=== PATIENT | male | born 1985 ===

== ENCOUNTER 2016-06-02 11:21 | Observation (INO) | payer OTHER ==
[2016-06-02] MEDS ORDERED: NS 1,000 ML IV ONE (11:27)
[2016-06-02] MEDS ORDERED: MIDAZOLAM 2 MG/2 ML VIAL IVP ONE (11:27)
--- NOTE | 2016-06-02 11:41 | CPEKG ---
Heart Rate: 46 RR Interval: 1304 P-R Interval: 156 QRSD Interval: 94 QT Interval: 460 QTC Interval: 403 P Jay: 25 QRS Jay: 85 T Wave Jay: 41 EKG Severity - OTHERWISE NORMAL ECG - EKG Impression: SINUS BRADYCARDIA EKG Impression: ST ELEV, PROBABLE NORMAL EARLY REPOL PATTERN Electronically Signed By: Alirio Razo 03-Jun-2016 09:28:48
[2016-06-02] MEDS ORDERED: HEPARIN 10,000 UNIT/10 ML MDV ONE (11:57)
[2016-06-02] MEDS ORDERED: BUPIVACAINE 0.5% 30 ML SDV ONE (11:57)
[2016-06-02] MEDS ORDERED: LIDOCAINE 1% 30 ML SDV ONE (11:57)
[2016-06-02] MEDS ORDERED: ISOPROTERENOL HCL 0.2 MG/ML 5ML AMP ONE (11:57)
[2016-06-02 11:58] LABS: % IMMATURE GRANULYOCYTES 0.2 % (0.0-1.1); ABSOLUTE IMMATURE GRANULOCYTES 0.01 10^3/uL (0.00-0.10); ADD DIFF? NO; ADD MORPH? NO; ADD SCAN? NO; ATYPICAL LYMPHOCYTE FLAG 10 (0-99); FRAGMENT RBC FLAG 0 (0-99); HEMOGLOBIN 16.2 g/dL (13.7-17.5); LEFT SHIFT FLG 0 (0-99); LIPEMIA HEMOLYSIS FLAG 90 (0-99); MEAN CELL HEMOGLOBIN 31.5 pg (27.9-34.1); MEAN CELL HEMOGLOBIN CONCENTR. 35.2 g/dL (32.4-36.7); MEAN CELL VOLUME 89.5 fL (81.5-99.8); MEAN PLATELET VOLUME 10.4 fL (8.7-11.7); PLATELET CLUMPS FLAG 10 (0-99); PLATELET COUNT 199 10^3/uL (150-400); RED BLOOD CELL COUNT 5.14 10^6/uL (4.40-6.38)
[2016-06-02] MEDS ORDERED: MIDAZOLAM 2 MG/2 ML VIAL ONE (12:00)
[2016-06-02 12:05] LABS: INR 0.98 (0.83-1.16); PROTIME(PATIENT) 12.9 SEC (12.0-15.0)
[2016-06-02] MEDS ORDERED: PROPOFOL 200 MG/20 ML VIAL ONE (12:05)
[2016-06-02] MEDS ORDERED: DEXAMETHASONE 4 MG/ML VIAL ONE (12:05)
[2016-06-02] MEDS ORDERED: fentaNYL 100 MCG/2 ML INJ ONE (12:05)
[2016-06-02] MEDS ORDERED: ONDANSETRON 4 MG/2 ML VIAL ONE (12:05)
[2016-06-02 12:06] LABS: APTT 27.8 SEC (23.0-38.0)
[2016-06-02 12:11] LABS: ANION GAP 10 mEq/L (8-16); CALCIUM 9.6 mg/dL (8.5-10.4); CARBON DIOXIDE 25 mEq/l (22-31); CHLORIDE 106 mEq/L (97-110); CREATININE 0.9 mg/dL (0.7-1.3); GLOMERULAR FILTRATION RATE > 60; GLUCOSE 102 mg/dL (70-100); MAGNESIUM 1.6 mg/dL (1.6-2.3); POTASSIUM 4.4 mEq/L (3.5-5.2); SODIUM 141 mEq/L (134-144)
[2016-06-02] MEDS ORDERED: PHENYLEPHRINE HCL 100 MCG/ML SYR ONE (13:10)
[2016-06-02] MEDS ORDERED: ROCURONIUM 50 MG/5 ML VIAL ONE ×3 (14:01)
[2016-06-02] MEDS ORDERED: SUGAMMADEX SODIUM 200 MG/2 ML VIAL IVP ONE (14:28)
[2016-06-02] MEDS ORDERED: ONDANSETRON 4 MG/2 ML VIAL IVP PRN (14:47)
[2016-06-02] MEDS ORDERED: ACETAMINOPHEN 325 MG TAB PO PRN (14:47)
--- NOTE | 2016-06-02 14:47 | EPPROC ---
Electrophysiology Procedure Note: ELECTROPHYSIOLOGIC STUDY AND CATHETER MEDIATED ABLATION OF SLOW/FAST AV SATNAM REENTRY TACHYCARDIA PROCEDURES PERFORMED: 81627-39 EP evaluation with RA/RV/LA pace/record, with arrhythmia induction 76307-76 EP evaluation with RA/RV pace record, insert/reposition catheter, with arrhythmia induction 86212 Intracardiac catheter ablation, SVT arrhythmogenic focus 08443 3D mapping Fluoroscopy INDICATION: PROCEDURE: Catheters & Anesthesia: The patient arrived in the Electrophysiology Laboratory in the fasting state. The right clavicular region, right groin, and left groin area were prepped and draped in the usual sterile manner. Anesthesiologist Dr. Jayesh Sanders administered general anesthesia. Appropriate non-invasive blood pressure, pulse oximetry and end-tidal CO2 monitoring was established. All catheters were placed percutaneously using the modified Seldinger technique , and advanced into position under fluoroscopic guidance. One #6 [place] hexapolar non-deflectable electrode catheter was inserted into the right atrial appendage via the left femoral vein (2mm spacing; except the proximal ring which was 25cm from the tip used for unipolar recordings). One #7 [place] deflectable octapolar electrode catheter was advanced to the His-bundle position via the left femoral vein (2mm spacing). One #7 [place] deflectable quadrapolar catheter was advanced to the anteroseptal right ventricle via the right femoral vein. One #7 [place] deflectable catheter with 10 pairs of electrodes was placed via the right femoral vein into the coronary sinus. Heparin was given to keep ACT > 200 s. Programmed stimulation was performed from the right atrium, right ventricle and coronary sinus (left atrium). Parahisian pacing demonstrated constant H-A interval with changing V-A intervals and stimulus-A intervals during capture and loss of capture of proximal RBB proving retrograde conduction over AV node. AVNRT was induced easily during infusion of isoproterenol 4 mcg/min. Ventricular extrastimuli delivered during tachycardia without altering antegrade His bundle activation did not advance next atrial potential, indicating that the tachycardia was not utilizing an accessory pathway for retrograde conduction. VA interval was 0 ms. Post entrainment of the tachycardia from the ventricle, there was VAHV response. Mapping of the right atrium and coronary sinus during AVNRT identified earliest atrial activation above the tendon of Elsy at a level slightly posterior to the level of the His bundle, consistent with retrograde conduction over the fast AV satnam pathway. A #8 [place] deflectable quadrapolar electrode catheter (2mm-5mm-2mm spacing) with 4 mm tip electrode and sensor for the 3D mapping Carto system was advanced to the right atrium. 3 D mapping of the inter-atrial septum and coronary sinus was performed and location of the AV node was marked. A SL2 sheath was used. RF applications were delivered to the region between the tricuspid annulus and the coronary sinus ostium, at the level of the upper edge of the coronary sinus ostium. Radiofrequency applications were also delivered along the roof of the proximal coronary sinus. Junctional rhythm occurred during all of the RF applications. Programmed stimulation was continued post ablation at baseline and during graded doses of isoproterenol upto 4mcg/min. Sustained AVNRT was not inducible. There were single echo beats. The catheters were removed. The long sheath was changed to a short 9 Fr sheath. The patient was transferred to the cardiovascular holding area in stable condition. Vascular access sheaths were removed in the holding area. There were no apparent complications. Results: A. Spontaneous Intervals: Pre ablation SCL 1380 ms AH 75 ms HV 45 ms Post ablation SCL 690 ms AH 75 ms HV 40 ms B. Antegrade AV satnam function (decremental pacing) Pre ablation FPERP 990 ms SPERP 510 ms WBB CL 500 ms (AH jump from 190 ms to 270 ms at FPERP) Post ablation FPERP 460 ms ms WBB CL 450 ms C. Retrograde AV satnam function (decremental pacing) Pre ablation FPERP 310 ms WBB CL 300 ms D. Arrhythmias: Sustained slow/fast AVNRT Cycle length 340 ms, AH interval 300 ms, ESP[place] interval 40 ms VA interval 0 ms CONCLUSIONS 1. AV satnam reentrant tachycardia using the slow AV satnam pathway for antegrade conduction and the fast AV satnam pathway for retrograde conduction. ( Slow/fast AVNRT). 2. Successful ablation of the slow AV satnam pathway with elimination of 1:1 antegrade conduction over the slow AV satnam pathway, all retrograde conduction over the slow AV satnam pathway and the inducibility of AVNRT. 3. No complications. Patient Problems: Problems Problem Status Onset Supraventricular tachycardia Acute
[2016-06-02] MEDS ORDERED: ATROPINE SULFATE 1 MG/10 ML SYR ONE (14:52)
--- NOTE | 2016-06-02 15:15 | CPEKG ---
Heart Rate: 56 RR Interval: 1071 P-R Interval: 196 QRSD Interval: 94 QT Interval: 436 QTC Interval: 421 P [place]: 65 QRS [place]: 81 T Wave [place]: 38 EKG Severity - NORMAL ECG - EKG Impression: SINUS RHYTHM EKG Impression: ST ELEV, PROBABLE NORMAL EARLY REPOL PATTERN Electronically Signed By: Alirio Razo 03-Jun-2016 09:28:54
[2016-06-02 15:39] LABS: ANION GAP 11 mEq/L (8-16); CALCIUM 9.1 mg/dL (8.5-10.4); CARBON DIOXIDE 21 mEq/l (22-31); CHLORIDE 107 mEq/L (97-110); CREATININE 0.8 mg/dL (0.7-1.3); GLOMERULAR FILTRATION RATE > 60; GLUCOSE 125 mg/dL (70-100); MAGNESIUM 1.4 mg/dL (1.6-2.3); POTASSIUM 4.4 mEq/L (3.5-5.2); SODIUM 139 mEq/L (134-144)
[2016-06-02] MEDS ORDERED: MAGNESIUM SULF 1 GM/DEXTROSE 100 ML BAG IV ONE (16:27)
[2016-06-02] MEDS ORDERED: MAGNESIUM SULF 1 GM/DEXTROSE 100 ML IV ONE (16:30)
[2016-06-03 04:32] LABS: % IMMATURE GRANULYOCYTES 0.2 % (0.0-1.1); ABSOLUTE IMMATURE GRANULOCYTES 0.02 10^3/uL (0.00-0.10); ADD DIFF? NO; ADD MORPH? NO; ADD SCAN? NO; ATYPICAL LYMPHOCYTE FLAG 10 (0-99); FRAGMENT RBC FLAG 0 (0-99); HEMATOCRIT 41.3 % (40.0-51.0); HEMOGLOBIN 14.4 g/dL (13.7-17.5); LEFT SHIFT FLG 0 (0-99); LIPEMIA HEMOLYSIS FLAG 90 (0-99); MEAN CELL HEMOGLOBIN 31.4 pg (27.9-34.1); MEAN CELL HEMOGLOBIN CONCENTR. 34.9 g/dL (32.4-36.7); MEAN CELL VOLUME 90.2 fL (81.5-99.8); MEAN PLATELET VOLUME 10.5 fL (8.7-11.7); PLATELET CLUMPS FLAG 0 (0-99); PLATELET COUNT 176 10^3/uL (150-400); RED BLOOD CELL COUNT 4.58 10^6/uL (4.40-6.38); RED CELL DISTRIBUTION WIDTH 11.8 % (11.5-15.2)
[2016-06-03 04:41] LABS: INR 1.06 (0.83-1.16); PROTIME(PATIENT) 13.7 SEC (12.0-15.0)
[2016-06-03 05:05] LABS: ANION GAP 9 mEq/L (8-16); CALCIUM 9.4 mg/dL (8.5-10.4); CARBON DIOXIDE 24 mEq/l (22-31); CHLORIDE 106 mEq/L (97-110); CREATININE 0.8 mg/dL (0.7-1.3); GLOMERULAR FILTRATION RATE > 60; GLUCOSE 102 mg/dL (70-100); POTASSIUM 4.1 mEq/L (3.5-5.2); SODIUM 139 mEq/L (134-144)
[2016-06-03 05:17] LABS: TROPONIN I 0.323 ng/mL (0-0.034)
[2016-06-03 07:30] VITALS: BP 105/68; PULSE 51; RESP 20; TEMP 98.2; O2SAT 94
[2016-06-03] MEDS ORDERED: ATROPINE SULFATE 1 MG/10 ML SYR ONE (07:35)
[2016-06-03] MEDS ORDERED: ASPIRIN 81 MG CHEWABLE TAB PO SCH (09:00)
--- NOTE | 2016-06-03 09:32 | CPEKG ---
Heart Rate: 50 RR Interval: 1200 P-R Interval: 168 QRSD Interval: 96 QT Interval: 428 QTC Interval: 391 P [place]: 27 QRS [place]: 86 T Wave [place]: 55 EKG Severity - NORMAL ECG - EKG Impression: SINUS RHYTHM EKG Impression: ST ELEV, PROBABLE NORMAL EARLY REPOL PATTERN Electronically Signed By: Alirio Razo 03-Jun-2016 16:46:46
--- NOTE | 2016-06-03 11:11 | ECHO ---
[id number] + + [address] : : [place] [address] : : [phone] + + Adult Echocardiographic Report + -----+ :Name: ALF PUENTE LStudy Date: 06/03/2016 08:16 AM : : Hospital Admission Number: [id number] Location : 210: :: 1985 Gender: Male Height: 73 in : :Age: 31 yrs Race: PTNP Weight: 165 lb : :Reason For Study: Eval LV Fx : : BSA: 2.0 meters2 : :History: Post EP : + -----+ MMode/2D Measurements \T\ Calculations IVSd: 0.78 cm LVIDd: 5.1 cm FS: 38.2 % Ao root diam: 3.6 cm LVPWd: 0.94 cm LVIDs: 3.1 cm EDV(Teich): 121.2 ml ACS: 2.1 cm ESV(Teich): 38.6 ml EF(Teich): 68.2 % Normal Measurement Values: + + :LVIDd (3.5-5.7cm) IVSd (0.6-1.1cm) LVPWd (0.6-1.1cm) Aortic Root (2.0-3.7cm)Left Atrium (1.5-4.0cm): :LV Vol(d) (76-115ml) LV Vol(s) (29-48ml) Ejec Fraction (50-65%)PV Eric (0.6- 1.2m/s) TV Eric (0.4-1.0m/s) : :MV E Eric (0.8-1.0m/s)MV A Eric (0.3-1.0m/s)LVOT Eric (0.7-1.2m/s) Asc Ao Eric ( 0.9-1.8m/s) : + + Doppler Measurements \T\ Calculations MV E max eric: Ao V2 max: LV V1 max: PA V2 max: 60.2 cm/sec 116.4 cm/sec 91.8 cm/sec 79.5 cm/sec MV A max eric: Ao max P.4 mmHg LV V1 max PG: PA max P.9 cm/sec 3.4 mmHg 2.5 mmHg MV E/A: 1.3 Left Ventricle The left ventricle is normal in size and function. There is normal left ventricular wall thickness. The left ventricular ejection fraction is normal. Ejection Fraction = 68%. The left ventricular wall motion is normal. Right Ventricle The right ventricle is normal in size and function. Atria The left atrial size is normal. Right atrial size is normal. Mitral Valve The mitral valve is normal. There is no evidence of mitral valve prolapse. There is no mitral valve stenosis. There is trace mitral regurgitation. Tricuspid Valve Normal tricuspid valve. There is trace tricuspid regurgitation. Right ventricular systolic pressure is normal. Aortic Valve The aortic valve is normal in structure and function. The aortic valve is trileaflet. There is no aortic stenosis. There is no aortic insufficiency. Pulmonic Valve The pulmonic valve is normal in structure and function. There is no pulmonic valvular regurgitation. Great Vessels The aortic root is normal size. Pericardium/Pleural There is no pericardial effusion. Conclusion A complete two-dimensional transthoracic echocardiogram was performed (2D, M-mode, Doppler and color flow Doppler). The left ventricle is normal in size and function. The left ventricular ejection fraction is normal. Ejection Fraction = 68%. The left ventricular wall motion is normal. The right ventricle is normal in size and function. There is trace mitral regurgitation. There is trace tricuspid regurgitation. Right ventricular systolic pressure is normal. The aortic valve is normal in structure and function. The aortic valve is trileaflet. There is no pericardial effusion. Final Reading Physician: Aditya Fernandes MD electronically signed on 06/03/2016 11:10 AM Ordering Physician: Aditya Fernandes Performed By: Hermes Matos, CS
--- NOTE | 2016-06-03 11:26 | GDS ---
[f rep st] DISCHARGE SUMMARY DISCHARGE DIAGNOSES: 1. 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 2. Vasovagal syncope with documented pauses of up to 5 seconds. HOSPITAL COURSE: For detailed H and P, please see prior dictation. 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 He has had 6 episodes of tachycardia over the past 2 years, all of which occurred with exertion. He did have a documented event at [facility] after a 2-hour episode of SVT. He ultimately had a consultation with Dr. Aditya Fernandes to discuss medical therapy versus possible ablation. He has a resting heart rate in the 40s and therefore it was determined that he would not tolerate the calcium channel aakash or beta aakash. Ultimately, the decision was made to proceed with an EP study and ablation. This was performed on 2016 and he was identified to have an AV tono reentrant tachycardia, which was ablated. That evening he stood and walked a few feet to the bathroom and became significantly lightheaded. He had a true syncopal event but was caught by his nurse. He came to but then had multiple more events over the next few minutes of loss of consciousness. He was monitored on telemetry and developed junctional rhythm followed by a pause of 3.8 seconds and then his heart rate began to increase. This is typical of vasovagal syncope. His pressure that was obtained was 116/78. This morning, he denies any further dizzy spells. He has ambulated in the halls without any dizziness, chest pain or shortness of breath. His troponin peaked at 0.323. The preliminary results of an echocardiogram revealed preserved LV function without any evidence of pericardial effusion. His EKG the day of discharge showed sinus bradycardia at a rate of 50 with repolarization abnormality. PHYSICAL EXAMINATION: GENERAL: Patient appears in no acute distress. VITALS: Blood pressure 105/68, heart rate 51, oxygen saturation of 94% on room air, afebrile. LUNGS: Clear to auscultation. No wheezes, rhonchi or crackles auscultated. CARDIAC: Regular rate and rhythm without any murmurs, rubs or gallops appreciated. EXTREMITIES: Bilateral groins where access was obtained for the EP study and ablation are clean, intact, without any evidence of infection or hematoma. DISCHARGE MEDICATIONS: Aspirin 81 mg daily x6 weeks. PLAN: The patient is currently stable and ready for discharge home. He will follow up with Dr. Aditya Fernandes in 1 month as scheduled. He has been given groin precautions. I have also encouraged him to increase his salt and fluid intake to prevent further episodes of vasovagal syncope. He has not exercised for 10 days. Greater than 30 minutes was spent coordinating the patient's care today. Addendum S Dena - reviewed findings with patient. Findings c.w. vasovagal syncope with ambulation. Adv to increase fluid and salt intake. No intervention necessary /[id number]/MODL MTDD
== END 2016-06-03 11:21 | disposition home or self-care (01) ==
LOC: FCATH 11:21 → F2W 14:47
PROVIDERS: ADMIT Internal Medicine Cardiovascular Disease; ATTEND Internal Medicine Cardiovascular Disease
PROC: 02K83ZZ Map Conduction Mechanism, Percutaneous Approach (ICD-10-PCS; principal; 2016-06-02)
PROC: 5A1213Z Performance of Cardiac Pacing, Intermittent (ICD-10-PCS; principal; 2016-06-02)
PROC: 02583ZZ Destruction of Conduction Mechanism, Percutaneous Approach (ICD-10-PCS; principal; 2016-06-02)
PROC: 4A023FZ Measurement of Cardiac Rhythm, Percutaneous Approach (ICD-10-PCS; principal; 2016-06-02)
DX: I47.1 Supraventricular tachycardia (principal); R55 Syncope and collapse
CPT/HCPCS: 93005; 93306; 93613; 93621; 93623; 93653; C1730; C1731; C1732; G0378; C1893; J0461; J1100; J1644; J2250; J2370; J2405; J2704; J3010; J3475